=== PATIENT | female | born 2000 | race African-American/Black ===

== ENCOUNTER 2020-09-29 21:41 | Emergency (ER) | payer BC, OTHER ==
[2020-09-29 22:55] LABS: URINE BILIRUBIN - DIPSTICK NEGATIVE (NEGATIVE); URINE BLOOD DIPSTICK TRACE-INTACT (NEGATIVE); URINE COLOR YELLOW; URINE GLUCOSE - DIPSTICK NEGATIVE (NEGATIVE); URINE KETONE NEGATIVE (NEGATIVE); URINE LEUK ESTERASE TRACE (NEGATIVE); URINE PROTEIN - DIPSTICK NEGATIVE (NEG-TRACE); URINE UROBILINOGEN - DIPSTICK 0.2 E.U./dL (0.2)
[2020-09-29 22:56] LABS: URINE NITRITE - DIPSTICK NEGATIVE (Negative)
[2020-09-29 22:57] LABS: HEMATOCRIT 41.8 % (37.0-47.0); HEMOGLOBIN 13.1 g/dl (12.0-16.0); IMMATURE GRANULOCYTES 0.1 % (0.0-5.0); MEAN CELL VOLUME 86.5 fL CALC (80.0-100.0); MEAN CORPUSCULAR HGB 27.1 pG CALC (26.0-32.0); MEAN CORPUSCULAR HGB CONC 31.3 g/dL CAL (32.0-36.0); NEUT# 5.35 thou/uL (2.00-7.15); RED BLOOD COUNT 4.83 mill/uL (4.20-5.60); RED CELL DISTRI WIDTH 15.2 % (11.5-15.5)
[2020-09-29 23:15] LABS: ALBUMIN 4.8 g/dL (3.2-5.0); ALKALINE PHOSPHATASE 68 u/l (38-126); ANION GAP 15 (6-22 (CALC)); BILIRUBIN, TOTAL 0.4 mg/dL (0.0-1.4); BUN 7 mg/dL (7-17); BUN/CREATININE RATIO 9 (12-20 (CALC)); CARBON DIOXIDE 26 mmol/l (22-30); CHLORIDE 101 mmol/l (95-108); CREATININE 0.8 mg/dL (0.5-1.0); GFR > 60 ML/MIN (>=60 (CALC)); GFR FOR AFR.AMER. > 60 ML/MIN (>=60 (CALC)); POTASSIUM 3.7 mmol/l (3.5-5.1); SGOT/AST 27 u/l (14-36); SODIUM 138 mmol/l (137-146); TOTAL PROTEIN 8.3 g/dL (6.3-8.2)
[2020-09-29 23:27] LABS: MYOGLOBIN 27 ng/mL (0 - 62)
[2020-09-29] MEDS ORDERED: CEPHALEXIN500 MG PO (23:52)
[2020-09-29] MEDS ORDERED: ROBITUSSIN AC10 ML PO (23:52)
[2020-09-30 00:40] VITALS: BP 126/70
== END 2020-09-30 00:45 | disposition home or self-care (01) | DRG 153 ==
LOC: ED 21:41
PROVIDERS: Emergency Medicine
DX: J06.9 Acute upper respiratory infection, unspecified (principal); Z20.822 Contact with and (suspected) exposure to COVID-19

== ENCOUNTER 2020-10-02 17:16 | Emergency (ER) | payer BC, OTHER ==
[~2020-10-02 17:16] MED LIST: CEPHALEXIN500 MG PO; ROBITUSSIN AC10 ML PO
[2020-10-02 20:50] VITALS: BP 124/70
== END 2020-10-02 20:49 | disposition home or self-care (01) | DRG 153 ==
LOC: ED 17:16
DX: J06.9 Acute upper respiratory infection, unspecified (principal); Z20.822 Contact with and (suspected) exposure to COVID-19

== ENCOUNTER 2020-10-16 10:56 | Emergency (ER) | payer BC, OTHER ==
[~2020-10-16] VITALS: Ht 165.1 cm; Wt 67.0 kg
[2020-10-16 12:43] LABS: URINE BILIRUBIN - DIPSTICK NEGATIVE (NEGATIVE); URINE BLOOD DIPSTICK NEGATIVE (NEGATIVE); URINE COLOR YELLOW; URINE GLUCOSE - DIPSTICK NEGATIVE (NEGATIVE); URINE KETONE TRACE mg/dL (NEGATIVE); URINE LEUK ESTERASE NEGATIVE (NEGATIVE); URINE PROTEIN - DIPSTICK TRACE mg/dL (NEG-TRACE); URINE SPECIFIC GRAVITY 1.025
[2020-10-16 12:45] LABS: URINE NITRITE - DIPSTICK NEGATIVE (Negative)
[2020-10-16] MEDS ORDERED: ZPAK PO (13:28)
[2020-10-16 13:45] VITALS: BP 110/72
== END 2020-10-16 13:45 | disposition home or self-care (01) | DRG 179 ==
LOC: ED 10:56
PROVIDERS: Emergency Medicine
DX: U07.1 COVID-19 (principal); F17.210 Nicotine dependence, cigarettes, uncomplicated

== ENCOUNTER 2020-12-20 17:28 | Emergency (ER) | payer BC, OTHER ==
[~2020-12-20] VITALS: Ht 165.1 cm; Wt 71.0 kg
[~2020-12-20 17:28] MED LIST changes: +ZPAK PO
[2020-12-20 19:45] VITALS: BP 108/61
== END 2020-12-20 19:45 | disposition home or self-care (01) | DRG 914 ==
LOC: ED 17:28
DX: S09.90XA Unspecified injury of head, initial encounter (principal); F17.200 Nicotine dependence, unspecified, uncomplicated; W20.8XXA Other cause of strike by thrown, projected or falling object, initial encounter; Y92.512 Supermarket, store or market as the place of occurrence of the external cause